=== PATIENT | male | born 2000 | race Two or more races ===

== ENCOUNTER 2018-06-17 15:21 | Emergency (ER) | payer SELFPAY ==
[2018-06-17] MEDS ORDERED: DIPH/PERTUSS(ACELL)/TETANUS VAC/PF 0.5 ML SYR (>=10YO) IM ONE (15:56)
[2018-06-17] MEDS ORDERED: CLINDAMYCIN 600 MG/D5W RTU 600 MG/50 ML RTUPB IV ONE ×2 (15:56→20:25)
--- NOTE | 2018-06-17 15:58 | ER Document Report ---
ED Medical Screen (RME) - General Chief Complaint: Leg Pain Stated Complaint: LEFT LEG PAIN Time Seen by Provider: 06/17/18 15:43 - HPI Notes: 06/17/18 15:57 Patient is a 17-year-old male with a history of bipolar and seizures, not on any medications, who presents emergency department complaining of left anterior leg redness, warmth, and pain over the past 2-3 days. Patient states that he initially injured his [place] when he scraped it on something at work. Last tetanus is unknown. No history of MRSA. Denies drug allergies. Denies [place], fever, neck pain, URI, CP, SOB, Abd pain. I have treated and performed a rapid initial assessment of this patient. A comprehensive ED assessment and evaluation of the patient, analysis of test results and completion of medical decision making process will be conducted by additional ED providers. PHYSICAL EXAMINATION: GENERAL: Well-appearing, well-nourished and in no acute distress. A&Ox4. Answers questions appropriately. LUNGS: Breath sounds clear to auscultation bilaterally and equal. No wheezes rales or rhonchi. HEART: Regular rate and rhythm without murmurs, rubs, gallops. Left lower extremity: + Erythema, warmth, mild induration, tenderness noted to the anterior lower leg. No calf tenderness. - Related Data Allergies/Adverse Reactions: No Known Allergies Allergy (Verified 06/17/18 15:44) Past Medical History - Social History Frequency of alcohol use: None Drug Abuse: None Neurological Medical History: Reports: Hx Seizures Renal/ Medical History: Denies: Hx Peritoneal Dialysis Psychiatric Medical History: Reports: Hx Bipolar Disorder Physical Exam - Vital signs Vitals: Temp Pulse Resp BP Pulse Ox 98.3 F 73 20 125/72 97 06/17/18 15:35 06/17/18 15:35 06/17/18 15:35 06/17/18 15:35 06/17/18 15:35 Course - Vital Signs Vital signs: Temp Pulse Resp BP Pulse Ox 98.3 F 73 20 125/72 97 06/17/18 15:35 06/17/18 15:35 06/17/18 15:35 06/17/18 15:35 06/17/18 15:35
[2018-06-17 17:35] LABS: ABSOLUTE EOSINOPHILS # (AUTO) 0.1 10^3/uL (0.0-0.6); ABSOLUTE LYMPHOCYTES (AUTO) 2.2 10^3/uL (0.5-4.7); ABSOLUTE MONOCYTES (AUTO) 1.6 10^3/uL (0.1-1.4); ABSOLUTE NEUT (AUTO) 10.3 10^3/uL (1.7-8.2); BASOPHILS % (AUTO) 0.3 % (0-2); EOSINOPHILS % (AUTO) 0.5 % (0-6); HEMATOCRIT 45.7 % (37.9-51.0); LYMPHOCYTES % (AUTO) 15.5 % (13-45); MEAN CORPUSCULAR HEMOGLOBIN 31.3 pg (27.0-33.4); MEAN CORPUSCULAR HGB CONC 34.9 g/dL (32.0-36.0); MEAN CORPUSCULAR VOLUME 90 fl (80-97); MONOCYTES % (AUTO) 11.2 % (3-13); PLATELET COUNT 282 10^3/uL (150-450); RED CELL DISTRIBUTION WIDTH 12.5 % (11.5-14.0); SEGMENTED NEUTROPHILS % (AUTO) 72.5 % (42-78); TOTAL CELLS COUNTED % (AUTO) 100 %; WHITE BLOOD COUNT 14.2 10^3/uL (4.0-10.5)
[2018-06-17 18:01] LABS: ALANINE AMINOTRANSFERASE 32 U/L (10-40); ALBUMIN 4.8 g/dL (3.7-5.6); ALKALINE PHOSPHATASE 73 U/L (65-260); ANION GAP 12 (5-19); ASPARTATE AMINO TRANSFERASE 27 U/L (10-45); BILIRUBIN,DIRECT 0.3 mg/dL (0.0-0.4); BILIRUBIN,TOTAL 0.9 mg/dL (0.2-1.3); BLOOD UREA NITROGEN 14 mg/dL (7-20); CALCIUM 10.1 mg/dL (8.4-10.2); CARBON DIOXIDE 25 mmol/L (22-30); CHLORIDE 102 mmol/L (98-107); GLUCOSE 93 mg/dL (75-110); SODIUM 138.8 mmol/L (137-145); TOTAL PROTEIN 8.4 g/dL (6.3-8.2)
[2018-06-17 18:13] LABS: C-REACTIVE PROTEIN 190.5 mg/L (<10.0)
--- NOTE | 2018-06-17 20:00 | ER Document Report ---
ED Extremity Problem, Lower - General Mode of Arrival: Ambulatory Information source: Patient <OCTAVIONIESHA Isaura - Last Filed: 06/18/18 16:02> <KHANTIESHA Nolen - Last Filed: 06/18/18 18:20> - General Chief Complaint: Leg Pain Stated Complaint: LEFT LEG PAIN Time Seen by Provider: 06/17/18 15:43 Notes: Patient is an otherwise healthy 17-year-old male presenting with chief complaint of left lower extremity pain. He reports that he first noticed the pain and redness 2 days ago. He states that he had a cut to this area from work previous to the onset of pain and erythema. He denies any fevers, nausea, vomiting or any other associated symptoms. (NIESHA CUNNINGHAM) - Related Data Allergies/Adverse Reactions: No Known Allergies Allergy (Verified 06/17/18 15:44) Past Medical History - General Information source: Patient - Social History Smoking Status: Current Every Day Smoker Frequency of alcohol use: None Drug Abuse: None Family History: Reviewed & Not Pertinent Patient has suicidal ideation: No Patient has homicidal ideation: No Neurological Medical History: Reports: Hx Seizures Renal/ Medical History: Denies: Hx Peritoneal Dialysis Psychiatric Medical History: Reports: Hx Bipolar Disorder <NIESHA CUNNINGHAM - Last Filed: 06/18/18 16:02> Review of Systems - Review of Systems Constitutional: No symptoms reported. denies: Fever EENT: No symptoms reported Cardiovascular: No symptoms reported Respiratory: No symptoms reported Gastrointestinal: No symptoms reported Genitourinary: No symptoms reported Male Genitourinary: No symptoms reported Musculoskeletal: No symptoms reported Skin: See HPI Hematologic/Lymphatic: No symptoms reported Neurological/Psychological: No symptoms reported <NIESHA CUNNINGHAM - Last Filed: 06/18/18 16:02> Physical Exam <NIESHA CUNNINGHAM - Last Filed: 06/18/18 16:02> - Vital signs Vitals: Temp Pulse Resp BP Pulse Ox 98.3 F 73 20 125/72 97 06/17/18 15:35 06/17/18 15:35 06/17/18 15:35 06/17/18 15:35 06/17/18 15:35 - Notes Notes: PHYSICAL EXAMINATION: GENERAL: Well-appearing, well-nourished and in no acute distress. HEAD: Atraumatic, normocephalic. EYES: Pupils equal round and reactive to light, extraocular movements intact, sclera anicteric, conjunctiva are normal. ENT: Nares patent, oropharynx clear without exudates. Moist mucous membranes. NECK: Normal range of motion, supple without lymphadenopathy LUNGS: Breath sounds clear to auscultation bilaterally and equal. No wheezes rales or rhonchi. HEART: Regular rate and rhythm without murmurs ABDOMEN: Soft, nontender, nondistended abdomen. No guarding, no rebound. No masses appreciated. Musculoskeletal: Normal range of motion, no pitting or edema. No cyanosis. NEUROLOGICAL: Cranial nerves grossly intact. Normal speech, normal gait. Normal sensory, motor exams PSYCH: Normal mood, normal affect. SKIN: Erythema noted to left lower extremity, no induration or fluctuance. Heat noted to the area. The area is not circumferential. (NIESHA CUNNINGHAM) Course - Laboratory Result Diagrams: 06/17/18 16:48 06/17/18 16:48 <NIESHA CUNNINGHAM - Last Filed: 06/18/18 16:02> - Laboratory Result Diagrams: 06/17/18 16:48 06/17/18 16:48 <TIESHA KHAN - Last Filed: 06/18/18 18:20> - Re-evaluation Re-evalutation: Patient has area of erythema to anterior left lower extremity consistent with cellulitis. There is no red streaking from the area. There is mild heat to the area. Patient's lab studies show elevated white blood counts and elevated C- reactive protein. Patient appears nontoxic and all vital signs are within normal limits. Patient has been afebrile. I did discuss this with my attending physician who came to the bedside to evaluate the patient. Patient will be sent home on oral antibiotics and will have very strict ED return precautions as outlined in the discharge section of his paperwork. Surgical markings were made to the area after administration of IV clindamycin. (NIESHA CUNNINGHAM) 06/18/18 18:16 Patient was seen and examined as requested by [facility]. Patient is a 17-year-old male with no significant medical history who presents with erythema to his left lower extremity. Patient has several superficial cuts and abrasions to the left lower extremity. Patient is well-appearing, has had no vomiting, no fever. Exam is consistent with cellulitis. CRP which was ordered by the provider in triage is elevated but this would be expected in an active infection. Skin was marked and instructions were given to both the patient and his mother who called repeatedly. Because of the patient's good health, ability to tolerate oral antibiotics and think this time it is appropriate to try an outpatient course of antibiotics. PHYSICAL EXAMINATION: Vital signs reviewed GENERAL: Well-appearing, well-nourished and in no acute distress. LUNGS: No respiratory distress Musculoskeletal: Normal range of motion NEUROLOGICAL: Normal speech, normal gait. PSYCH: Normal mood, normal affect. SKIN: Multiple left lower extremity abrasions with associated erythema, warmth consistent with cellulitis. No streaking. (TIESHA KHAN) - Vital Signs Vital signs: Temp Pulse Resp BP Pulse Ox 98.5 F 102 H 18 122/81 96 06/17/18 23:55 06/17/18 23:55 06/17/18 23:55 06/17/18 23:55 06/17/18 23:55 - Laboratory Laboratory results interpreted by me: 06/17/18 06/17/18 16:48 16:48 WBC 14.2 H Absolute Neutrophils 10.3 H Absolute Monocytes 1.6 H C-Reactive Protein 190.5 H Total Protein 8.4 H Discharge <NIESHA CUNNINGHAM - Last Filed: 06/18/18 16:02> <TIESHA KHAN - Last Filed: 06/18/18 18:20> - Discharge Clinical Impression: Cellulitis Qualifiers: Site of cellulitis: extremity Site of cellulitis of extremity: lower extremity Laterality: left Qualified Code(s): L03.116 - Cellulitis of left lower limb Condition: Stable Disposition: HOME, SELF-CARE Additional Instructions: The rash is likely due to infection of your skin. You need to take the antibiotics as prescribed. Do not stop even if the rash goes away until you have completed all the antibiotics. The area of redness was traced out here in the emergency department with a marking pen. You need to return to emergency department if the redness spreads outside of this area by more than 2 cm in any direction. You should also return if you develop fevers with temperature greater than 101, persistent vomiting, worsening pain, or have any other symptoms that are concerning to you. Prescriptions: Cephalexin [Cephalexin 500 MG Tablet] 1 tab PO QID #40 tablet Sulfamethoxazole/Trimethoprim [Bactrim Ds Tablet] 2 tab PO BID #28 tablet Forms: Return to Work
[2018-06-18 00:09] VITALS: BP 122/81
== END 2018-06-18 00:14 | disposition home or self-care (01) ==
LOC: ER 15:21
DX: L03.116 Cellulitis of left lower limb (principal); Z23 Encounter for immunization
CPT/HCPCS: 36415; 80053; 83605; 85025; 86140; 87040; 90471; 90715; 96365; 99283